=== PATIENT | male | born 1970 | race Caucasian/White ===

== ENCOUNTER 2019-03-16 10:52 | Emergency (ER) | payer BC ==
--- NOTE | 2019-03-16 11:19 | ED ---
HPI Chest Pain - HPI Summary HPI Summary: This pt is a 48 y/o male presenting to [facility] c/o gradually worsening right sided chest pain for the past 2 weeks. Pt reports he went for a job a couple of weeks ago and the next day his chest felt sore. He states his pain has been gradually worsening and describes his pain as constant and dull ache. His pain is aggravated with turning his body to the right. Denies associated profuse diaphoresis, fever, chills, cough. Patient denies recent long plane or car rides. He denies pain or swelling in legs. Denies hx of blood clots. He denies taking any hormones. He has not tried any medications for his pain. Pt notes he has not had these symptoms in the past. 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 No PMHx. PSHx: hernia repair 20 years ago. FHx: father with heart disease. Denies tobacco and drug use. He reports occasional alcohol use. NKDA. Medications reviewed. Allergies noted. - History of Current Complaint Chief Complaint: EDChestWallPain Hx Obtained From: Patient Onset/Duration: Started Weeks Ago - 2, Still Present Timing: Lasting Weeks - 2 Current Severity: Moderate Pain Intensity: 5 Pain Scale Used: 0-10 Numeric Chest Pain Location: Right Anterior Chest Pain Radiates: No Character: Dull/Aching - aching Aggravating Factor(s): Movement - turning to the right Alleviating Factor(s): Nothing Associated Signs and Symptoms: Positive: Chest Pain. Negative: Fever, Chills, Diaphoresis, Cough, Calf Pain/Swelling, Edema - Allergy/Home Medications Allergies/Adverse Reactions: Allergies Allergy/AdvReac Type Severity Reaction Status Date / Time No Known Allergies Allergy Verified 03/16/19 11:03 PMH/Surg Hx/FS Hx/Imm Hx Endocrine/Hematology History: Denies: Hx Diabetes Cardiovascular History: Denies: Hx Hypotension, Hx Hypertension History: Denies: Hx Renal Disease - Surgical History Surgical History: Yes Surgery Procedure, Year, and Place: Hernia Repair 2003 Infectious Disease History: No Infectious Disease History: Denies: Traveled Outside the [place] in Last 30 Days - Family History Known Family History: Positive: Cardiac Disease - father, Hypertension Negative: Diabetes - Social History Occupation: Employed Full-time - [employer] Alcohol Use: Daily Alcohol Amount: 1xbeer w/ dinner Hx Substance Use: No Substance Use Type: Reports: None Hx Tobacco Use: No Smoking Status (MU): Never Smoked Tobacco Review of Systems Negative: Fever, Chills, Skin Diaphoresis Positive: Chest Pain Negative: Cough Negative: Edema, Other - NEGATIVE: leg pain All Other Systems Reviewed And Are Negative: Yes Physical Exam - Summary Physical Exam Summary: Constitutional: Well-developed, Well-nourished, Alert. (-) Distressed Skin: Warm, Dry. No rash or puncture site. HENT: Normocephalic; Atraumatic Eyes: Conjunctiva normal Neck: Musculoskeletal ROM normal neck. (-) JVD, (-) Stridor, (-) Tracheal deviation Cardio: Rhythm regular, rate normal, Heart sounds normal; Intact distal pulses; The pedal pulses are 2+ and symmetric. Radial pulses are 2+ and symmetric. (-) Murmur Pulmonary/Chest wall: Effort normal. (-) Respiratory distress, (-) Wheezes, (-) Rales. Point tenderness on the right lateral chest wall. Abd: Soft, (-) tenderness, (-) Distension, (-) Guarding, (-) Rebound Musculoskeletal: (-) Edema Lymph: (-) Cervical adenopathy Neuro: Alert, Oriented x3 Psych: Mood and affect Normal Triage Information Reviewed: Yes Vital Signs On Initial Exam: Initial Vitals Temp Pulse Resp BP Pulse Ox 97.8 F 62 16 132/76 94 03/16/19 10:53 03/16/19 10:53 03/16/19 10:53 03/16/19 10:53 03/16/19 10:53 Vital Signs Reviewed: Yes Procedures - Sedation Patient Received Moderate/Deep Sedation with Procedure: No Diagnostics - Vital Signs Vital Signs Temp Pulse Resp BP Pulse Ox 03/16/19 10:53 97.8 F 62 16 132/76 94 - Laboratory Result Diagrams: 03/16/19 11:45 03/16/19 11:45 Lab Statement: Any lab studies that have been ordered have been reviewed, and results considered in the medical decision making process. - Radiology Right ribs and chest XR Radiology Interpretation Completed By: Radiologist Summary of Radiographic Findings: IMPRESSION: No pneumothorax is noted. No fracture of the right ribs is noted. Dr. Blair has reviewed this report. - EKG 10:57 Cardiac Rate: Bradycardia - at 59 bpm EKG Rhythm: Sinus Bradycardia Summary of EKG Findings: EKG at 1057 shows sinus bradycardia at a rate of 59 bpm. No STEMI. Re-Evaluation - Re-Evaluation First Eval Re-Evaluation Time: 12:48 Comment: Reviewed results with patient. Chest Pain Course/Dx - Course Course Of Treatment: Patient is here 2 weeks of constant right-sided chest pain. Patient has no cardiac risk factors. Patient had an EKG showed no evidence of ischemic changes. Patient had negative troponin. Patient has a well score of 0 and was perc negative and had a negative d-dimer. Patient's history is not consistent with dissection. Patient had a chest x-ray which showed no rib fracture or pneumothorax. Patient was encouraged to take Motrin for pain and to follow-up with [facility] - Diagnoses Provider Diagnoses: Right-sided chest pain Discharge ED - Sign-Out/Discharge Documenting (check all that apply): Patient Departure - Discharge home - Discharge Plan Condition: Stable Disposition: HOME Patient Education Materials: Chest Pain (ED) Referrals: [facility] [Outside] Additional Instructions: Take Ibuprofen for your pain. Follow up with your primary care provider in 1-3 days. If you don't have one follow up with [facility]. PLEASE RETURN TO EMERGENCY DEPARTMENT FOR TROUBLE BREATHING, SEVERE PAIN, ANY OTHER CONCERNING SYMPTOMS. - Billing Disposition and Condition Condition: STABLE Disposition: Home - Attestation Statements Document Initiated by Sterling: Yes Documenting Scribe: Gabriela Branch Provider For Whom Sterling is Documenting (Include Credential): Da Blair MD Scribe Attestation: Gabriela Almaguer, scribed for Da Blair MD on 03/16/19 at 1330. Scribe Documentation Reviewed: Yes Provider Attestation: The documentation as recorded by the Gabriela mcgregor accurately reflects the service I personally performed and the decisions made by me, Da Blair MD Status of Scribe Document: Viewed
[2019-03-16 12:03] LABS: ABS Eosinophils 0.1 10^3/ul (0-0.6); ABS Lymphocytes 1.6 10^3/ul (1.0-4.8); ABS Monocytes 0.3 10^3/ul (0-0.8); ABS Neutrophils 2.7 10^3/ul (1.5-7.7); Eosinophil % 2.5 %; Hematocrit 44 % (42-52); Hemoglobin 15.8 g/dL (14.0-18.0); Lymphocyte % 33.5 %; Mean Corpuscular HGB Conc 36 g/dL (31-36); Mean Corpuscular Hemoglobin 31 pg (27-31); Mean Corpuscular Volume 87 fL (80-94); Mean Platelet Volume 7.7 fL (7.4-10.4); Nucleated Red Blood Cells % 0.1; Platelet Count 163 10^3/uL (150-450); Red Blood Count 5.03 10^6 /uL (4.18-5.48); Red Cell Distribution Width 13 % (10-15); White Blood Count 4.8 10^3/uL (3.5-10.8)
[2019-03-16 12:12] LABS: Albumin 4.3 g/dL (3.2-5.2); Albumin/Globulin Ratio 1.5 (1-3); BUN/Creatinine Ratio 16.9 (8-20); Calcium 9.3 mg/dL (8.6-10.3); EGFR Non-African American 108.3 (>60); Globulin 2.8 g/dL (2-4); Potassium 4.1 mmol/L (3.5-5.0); Total Bilirubin 0.5 mg/dL (0.2-1.0); Total Protein 7.1 g/dL (6.4-8.9)
[2019-03-16 12:56] VITALS: BP 109/72
== END 2019-03-16 12:57 | disposition home or self-care (01) ==
LOC: ED 10:52
DX: R07.9 Chest pain, unspecified (principal)
CPT/HCPCS: 36415; 80053; 84484; 85025; 85379; 93005; 99282